=== PATIENT | female | born 1975 | race Caucasian/White ===

== ENCOUNTER 2018-03-08 17:49 | Emergency (ER) | payer BC ==
--- NOTE | 2018-03-08 18:00 | ED Physician Documentation ---
General Adult - HISTORIAN Historian: patient - HPI Chief Complaint: Upper Extremity Injury (laceration) Onset: minutes (45 min) Timing: still present - ROS CONST: no problems. denies: fever, chills - PAST HX Past History: none, other (hypothyroidism) Other History: none Surgeries/Procedures: BTL Immunizations: tetanus (w/i the last 5 years) Allergies/Adverse Reactions: Allergies Allergy/AdvReac Type Severity Reaction Status Date / Time No Known Allergies Allergy Verified 03/09/18 06:41 Home Medications: Ambulatory Orders Medication Instructions Recorded NK [NK] 03/09/18 - SOCIAL HX Smoking History: non-smoker Alcohol Use: none Drug Use: none - FAMILY HX Family History: No - REVIEWED ASSESSMENTS Nursing Assessment Reviewed: Yes Vitals Reviewed: Yes Procedures Wound Location: upper extremity (right 3rd finger over IP joint) Wound's Depth, Shape: superficial, linear Wound Explored: clean Irrigated w/ Saline (ccs): 20 Betadine Prep?: No (jc-Hex) Anesthesia: 1% Lidocaine Volume of Anesthetic: 2 Wound Debrided: none Wound Repaired With: sutures Suture Size/Type: 5:0 Number of Sutures: 4 Layer Closure?: No General Adult Physical Exam - PHYSICAL EXAM GENERAL APPEARANCE: no distress NECK: normal inspection, thyroid normal, supple. No: lymphadenopathy RESPIRATORY: no resp distress, chest non-tender CVS: reg rate & rhythm, heart sounds normal SKIN: warm/dry NEURO: oriented X3, CN's nml as tested, motor nml, sensation nml Discharge Clincal Impression: Laceration of hand, right Qualifiers: Encounter type: initial encounter Foreign body presence: without foreign body Qualified Code(s): S61.411A - Laceration without foreign body of right hand, initial encounter Referrals: Primary Doctor,No [Primary Care Provider] - 2 Days Additional Instructions: Watch for signs of infection, redness, purulent drainage, swelling. Have sutures removed in 5-7 days. If any problems developed to see primary care provider or return to the ED. Condition: Stable Disposition: 01 HOME, SELF-CARE Decision to Admit: NO Date of Decison to Admit: 03/08/18 Decision Time: 18:26
[2018-03-08] MEDS ORDERED: Lidocaine 1% 5ml(IM or SUTURE)(PAIN CLINIC) IJ ONE (18:03)
[2018-03-08] MEDS ORDERED: Lidocaine 1% 5ml(IM or SUTURE)(PAIN CLINIC) ONE (18:03)
[2018-03-08 18:59] VITALS: BP 131/88
== END 2018-03-08 18:35 | disposition home or self-care (01) ==
LOC: ED 17:49
DX: S61.411A Laceration without foreign body of right hand, initial encounter (principal); W45.8XXA Other foreign body or object entering through skin, initial encounter; Y93.9 Activity, unspecified; Y92.9 Unspecified place or not applicable; Y99.9 Unspecified external cause status
CPT/HCPCS: 12001